=== PATIENT | male | born 1965 | race Caucasian/White ===

== ENCOUNTER 2016-06-06 11:22 | Emergency (ER) | payer BC ==
[~2016-06-06] VITALS: Ht 175.3 cm; Wt 79.6 kg
[2016-06-06 11:27] VITALS: BP 131/88; PULSE 126; RESP 16; TEMP 99; O2SAT 94
[2016-06-06] MEDS ORDERED: ZOCO20TA PO (12:08)
[2016-06-06] MEDS ORDERED: ASPI1TAB69 PO (12:08)
[2016-06-06] MEDS ORDERED: METF1000 PO (12:08)
--- NOTE | 2016-06-06 12:13 | PD ---
HPI Chief Complaint: Diabetic Time Seen by Provider: 12:02 Travel History International Travel<30 days: No Contact w/Intl Traveler<30days: No Traveled to known affect area: No History of Present Illness HPI 51-year-old male came to the emergency room with history of high blood sugar and unable to urinate effectively. Patient has history of diabetes and lost his primary care doctor. He has not taken his insulin in almost 3 months. He is on metformin however. His sugar in triage was 400. Patient says that for past 1 week he has been tried to urinate but he has trouble. He has to force himself to urinate. He does have history of enlarged prostate. He is also waking up 3 or 4 times in the middle of the night to urinate. His is here and says that she is trying to get hold of his primary care which they have just recently found go on and get an appointment. Patient was tachycardic in triage. PFSH Past Medical History Narrative Medical List of his past medical, surgical, social and family history was reviewed from the nursing note. High Cholesterol: Yes Diabetes: Yes Patient Takes Glucophage: Yes Tetanus Vaccination: < 5 Years Influenza Vaccination: No Past Surgical History Oral Surgery: Yes (nose) Social History Alcohol Use: No (states seldom) Tobacco Use: No Substance Use: No Allergies-Medications (Allergen,Severity, Reaction): Coded Allergies: No Known Allergies (Unverified , 06/06/16) Comments List of his allergies reviewed from the nursing note. Reported Meds & Prescriptions Reported Meds & Active Scripts Active Metformin (Metformin HCl) 500 Mg Tab 1,500 Mg PO BIDPC 30 Days With meals Reported Valentino Couletr Pen Inj (Insulin Glargine) 300 Unit/Ml Pen 53 Units SQ HS Zocor (Simvastatin) 20 Mg Tab 20 Mg PO DAILY Metformin (Metformin HCl) 1,000 Mg Tab 1,000 Mg PO BIDPC With meals Aspirin 81 Mg Tabdr 81 Mg PO DAILY Narrative Medication List of his home medications reviewed from the nursing note. Review of Systems Except as stated in HPI: all other systems reviewed are Neg Physical Exam Narrative GENERAL: Awake, alert, mild distress SKIN: Focused skin assessment warm/dry. HEAD: Atraumatic. Normocephalic. EYES: Pupils equal and round. No scleral icterus. No injection or drainage. ENT: No nasal bleeding or discharge. Dry mucous membrane NECK: Trachea midline. No JVD. CARDIOVASCULAR: Regular rate and rhythm. Tachycardia. No murmur appreciated. RESPIRATORY: No accessory muscle use. Clear to auscultation. Breath sounds equal bilaterally. GASTROINTESTINAL: Abdomen soft, non-tender, nondistended. Hepatic and splenic margins not palpable. MUSCULOSKELETAL: No obvious deformities. No clubbing. No cyanosis. No edema. NEUROLOGICAL: Awake and alert. No obvious cranial nerve deficits. Motor grossly within normal limits. Normal speech. PSYCHIATRIC: Appropriate mood and affect; insight and judgment normal. Data Data Last Documented VS Orders Complete Blood Count With Diff (06/06/16 12:17) Basic Metabolic Panel (Bmp) (06/06/16 12:17) Urinalysis - C+S If Indicated (06/06/16 12:17) Sodium Chlor 0.9% 1000 Ml Inj (Ns 1000 M (06/06/16 12:30) Insulin Human Regular Inj (Novolin R Inj (06/06/16 12:30) Sodium Chlor 0.9% 1000 Ml Inj (Ns 1000 M (06/06/16 14:30) Blood Glucose (06/06/16 14:27) Labs MDM Medical Decision Making Medical Screen Exam Complete: Yes Emergency Medical Condition: Yes Medical Record Reviewed: Yes Differential Diagnosis DKA, dehydration, HONK, hyperglycemia Narrative Course 2:15 PM most of the blood test results are back. Patient does have hyperglycemia but no elevated anion gap. He was given 10 units of subcutaneous insulin. I will ask the nurse to repeat the blood sugar. There is large amount of glucose in the urine. I will order him a second liter of fluid bolus. 2:33 PM his repeat blood sugar an hour ago was 315. The nurse hung the second liter and she will check another blood sugar. I have educated the patient and he'll be discharged home. Procedures EKG Prior to Arrival: No Diagnosis Primary Impression: Hyperglycemia Additional Impressions: Dehydration Glucosuria Referrals: Primary Care Physician 3 days Additional Instructions: Please take the new dose of metformin like prescribed to you. Stop the old dose. Check your blood sugar at least 2 times a day before breakfast and before dinner. Drink lots of fluid. Follow-up with your primary care in couple days. Med/Other Pt SpecificInfo: Prescription(s) given, Med Stopped (previous dose of metformin stopped) Scripts Metformin 500 Mg Tab1,500 Mg PO BIDPC 30 Days Ref 0 With meals Prov:Yunier Vega MD 06/06/16 Disposition: 01 DISCHARGE HOME Condition: Stable Yunier Vega MD Jun 06, 2016 12:13 Lymphocytes # (Auto) 1.2 TH/MM3 Monocytes # (Auto) 0.8 TH/MM3 Eosinophils # (Auto) 0.1 TH/MM3 Basophils # (Auto) 0.1 TH/MM3 CBC Comment DIFF FINAL Differential Comment Sodium Level 135 MEQ/L Potassium Level 3.8 MEQ/L Chloride Level 99 MEQ/L Carbon Dioxide Level 23.7 MEQ/L Anion Gap 12 MEQ/L Blood Urea Nitrogen 14 MG/DL Creatinine 1.20 MG/DL Estimat Glomerular Filtration 63 ML/MIN Rate Random Glucose 401 MG/DL Calcium Level 8.7 MG/DL Urine Color YELLOW Urine Turbidity CLEAR Urine pH 5.5 Urine Specific Hart[place] 1.035 Urine Protein NEG mg/dL Urine Glucose (UA) 1000 OR GREATER mg/dL Urine Ketones 15 mg/dL Urine Occult Blood NEG Urine Nitrite NEG Urine Bilirubin NEG Urine Leukocyte Esterase NEG Urine RBC 0-3 /hpf Urine Squamous Epithelial 0-5 /hpf Cells Microscopic Urinalysis Comment CULT NOT INDICATED MDM Medical Decision Making Medical Screen Exam Complete: Yes Emergency Medical Condition: Yes Medical Record Reviewed: Yes Differential Diagnosis DKA, dehydration, HONK, hyperglycemia Narrative Course 2:15 PM most of the blood test results are back. Patient does have hyperglycemia but not dictate. He was given 10 units of subcutaneous insulin. I will ask the nurse to repeat the blood sugar. There is large amount of glucose in the urine. I will order him a second liter of fluid bolus. 2:33 PM his repeat blood sugar an hour ago was 315. The nurse held the second liter and she will check another blood sugar. I have educated the patient and he'll be discharged home. Procedures EKG Prior to Arrival: No Diagnosis Primary Impression: Hyperglycemia Additional Impressions: Dehydration Glucosuria Referrals: Primary Care Physician 3 days Additional Instructions: Please take the new dose of metformin like prescribed to you. Stop the old dose. Check your blood sugar at least 2 times a day before breakfast and before dinner. Drink lots of fluid. Follow-up with your primary care in couple days. Med/Other Pt SpecificInfo: Prescription(s) given, Med Stopped (previous dose of metformin stopped) Scripts Metformin 500 Mg Tab1,500 Mg PO BIDPC 30 Days Ref 0 With meals Prov:Yunier Vega MD 06/06/16 Disposition: 01 DISCHARGE HOME Condition: Stable Yunier Vega MD Jun 06, 2016 12:13
[2016-06-06] MEDS ORDERED: insulin pen SQ (12:20)
[2016-06-06 12:30] VITALS: BP 127/88; PULSE 119; RESP 16; O2SAT 97
[2016-06-06] MEDS ORDERED: INSULIN HUMAN REGULAR 1,000 UNITS/10 ML VIAL SQ ONE (12:30)
[2016-06-06] MEDS ORDERED: SODIUM CHLOR 0.9% 1000 ML INJ 1,000 ML IV ONE ×2 (12:30→14:30)
[2016-06-06 12:44] LABS: AUTOMATED NEUTROPHIL # 8.2 TH/MM3 (1.8-7.7); BASOPHIL # 0.1 TH/MM3 (0-0.2); BASOPHIL % 0.5 % (0.0-2.0); EOSINOPHIL # 0.1 TH/MM3 (0-0.4); EOSINOPHIL % 0.6 % (0.0-4.0); HEMATOCRIT 49.5 % (39.0-51.0); HEMO FLAGS DIFF FINAL; LYMPH % 11.4 % (9.0-44.0); LYMPHOCYTE # 1.2 TH/MM3 (1.0-4.8); MEAN CELL VOLUME 89.1 FL (80.0-100.0); MEAN CORPUSCULAR HEMOGLOBIN 29.1 PG (27.0-34.0); MEAN CORPUSCULAR HGB CONC 32.6 % (32.0-36.0); MONO % 8.1 % (0.0-8.0); NEUT % 79.4 % (16.0-70.0); PLATELET COUNT 219 TH/MM3 (150-450); RED BLOOD COUNT 5.56 MIL/MM3 (4.50-5.90); RED CELL DISTRIBUTION WIDTH 11.9 % (11.6-17.2); WHITE BLOOD COUNT 10.4 TH/MM3 (4.0-11.0)
[2016-06-06 12:53] LABS: POTASSIUM 3.8 MEQ/L (3.5-5.1)
[2016-06-06 12:56] LABS: BICARBONATE 23.7 MEQ/L (21.0-32.0)
[2016-06-06] MEDS ORDERED: INSU1.2I SQ (12:57)
[2016-06-06 13:22] LABS: BLOOD, URINE NEG (NEG); KETONE, URINE 15 mg/dL (NEG); NITRITE,URINE NEG (NEG); PH, URINE 5.5 (5.0-8.5)
[2016-06-06 13:25] LABS: GLUCOSE,URINE 1000 OR GREATER mg/dL (NEG)
[2016-06-06 13:30] VITALS: BP 136/88; PULSE 102; RESP 16; O2SAT 97
[2016-06-06 14:22] LABS: URINE COLOR YELLOW (YELLW/STRAW)
[2016-06-06 14:23] LABS: COMMENT (UR) CULT NOT INDICATED; CULTURE IF INDICATED CULT NOT INDICATED; RBC, URINE 0-3 /hpf (0-3); SQUAMOUS EPITHELIAL CELL URINE 0-5 /hpf (0-5)
[2016-06-06] MEDS ORDERED: METF500T PO (14:35)
[2016-06-06 15:54] VITALS: BP_SYST 128; BP_SYST 137; BP_DIAS 82; BP_DIAS 92
== END 2016-06-06 15:58 | disposition home or self-care (01) ==
LOC: PHED 11:22
DX: E11.65 Type 2 diabetes mellitus with hyperglycemia (principal); R33.8 Other retention of urine; E78.00 Pure hypercholesterolemia, unspecified; E86.0 Dehydration; R81 Glycosuria; N40.0 Benign prostatic hyperplasia without lower urinary tract symptoms
CPT/HCPCS: 80048; 81001; 85025; 96360; 96361; 96372; 99285; J1815; J7030